=== PATIENT | male | born 1990 | race Caucasian/White ===

== ENCOUNTER 2018-04-23 15:23 | Outpatient (CLI) | payer OTHER ==
--- NOTE | 2018-04-23 16:20 | RAD ---
LEFT KNEE TWO VIEWS: History: TSC. Left knee pain. FINDINGS/IMPRESSION: No bony abnormalities are seen. POS: [facility]
--- NOTE | 2018-04-23 16:47 | RAD ---
TWO VIEWS LEFT SHOULDER: Comparison: None. History: Left shoulder pain. TRC exam. FINDINGS: Two views of the left shoulder shows no evidence of acute fracture or dislocation. No degenerative ch angse are seen. The visualized left thorax is unremarkable. IMPRESSION: Unremarkable exam. POS: [facility]
--- NOTE | 2018-04-23 16:48 | RAD ---
TWO VIEWS LEFT HAND: Comparison: None. History: Left hand pain. [facility]C exam. FINDINGS: Two views of the left hand shows no evidence of acute fracture or dislocation. No degenerative change s are seen. No soft tissue swelling is present. IMPRESSION: Unremarkable exam. POS: [facility]
--- NOTE | 2018-04-23 16:50 | RAD ---
TWO VIEWS CERVICAL SPINE: Comparison: None. History: Neck pain. [facility]C exam. FINDINGS: Two views of the cervical spine shows normal height and alignment of the vertebral bodies and interve rtebral disc without fracture or subluxation. No degenerative changes are seen. No prevertebral soft tissue swelling is present. IMPRESSION: Unremarkable exam. POS: [facility]
== END 2018-04-23 15:24 | disposition home or self-care (01) ==
LOC: BICRAD 15:23
PROVIDERS: ATTEND Internal Medicine
DX: M54.2 Cervicalgia (principal); M25.512 Pain in left shoulder; M79.642 Pain in left hand; M25.562 Pain in left knee
CPT/HCPCS: 72040